=== PATIENT | male | born 1975 | race Caucasian/White ===

== ENCOUNTER 2023-12-01 15:31 | Inpatient (IN) ==
[2023-12-01 15:39] VITALS: TEMP 98.3
[2023-12-01 16:06] LABS: Hematocrit (blood only) 37.5 % (42.0-52.0); Hemoglobin 13.1 g/dl (14.0-18.0); Mean Corpuscular Hemoglobin 35.9 pg (25.0-34.0); Mean Corpuscular Hgb Conc 34.9 g/dL (32.0-36.0); Mean Corpuscular Volume 102.7 fL (80.0-100.0); Mean Platelet Volume 9.6 fL (9.4-12.4); Platelet Count 252 K/uL (130-400); RDW Coefficient of Variation 12.8 % (11.5-14.5); RDW Standard Deviation 48.4 fL (36.4-46.3); Red Blood Count 3.65 M/uL (4.70-6.10); White Blood Count 20.69 K/ul (4.8-10.8)
--- NOTE | 2023-12-01 16:17 | XRay Report ---
XR chest 1V not portable CLINICAL HISTORY: Sepsis. COMPARISON STUDY: Chest radiograph November 25, 2021. FINDINGS: Lung volumes are normal. Lungs are clear. There is no pneumothorax or pleural effusion. Car diac size is normal. Mediastinal contours are normal. There is no evidence for pulmonary edema. IMPRESSION: No acute cardiopulmonary findings. ACT 112: Negative or not required by law. Electronically signed by: Jone Soto M.D. 12/01/2023 4:15 PM
[2023-12-01 16:25] LABS: Albumin Globulin Ratio 1.3 (0.9-2); Albumin Level 3.9 gm/dl (3.4-5.0); BUN Creatinine Ratio 13.9 (10-20); Basophils # (auto) 0.07 K/uL (0.00-0.20); Basophils % (auto) 0.3 %; Bilirubin,Total 1.3 mg/dl (0.2-1.0); Calcium 8.7 mg/dl (8.6-10.3); Creatinine Clr Calc Pharmacy 115.5 ml/min; Eosinophils # (auto) 0.01 K/uL (0.00-0.50); Est GFR (African American) 121.4 ml/min; Est GFR (Non-African American) 104.7 ml/min; Immature Granulocytes # (auto) 0.34 K/uL (0.01-0.20); Immature Granulocytes % (auto) 1.6 %; Lymphocytes % (auto) 4.8 %; Magnesium 1.7 mg/dl (1.7-2.4); Monocytes # (auto) 0.67 K/uL (0.11-0.59); Monocytes % (auto) 3.2 %; Neutrophils % (auto) 90.1 %; Potassium 3.8 mmol/L (3.5-5.1); Total Protein 6.9 gm/dl (6.0-8.3)
[2023-12-01 16:31] LABS: Troponin I High Sensitivity 14.4 pg/ml (0-20)
[2023-12-01 16:43] LABS: Partial Thromboplastin Ratio 0.9; Partial Thromboplastin Time 24 Seconds (21-31)
--- NOTE | 2023-12-01 18:01 | Emergency Department Note ---
History of Present Illness General Chief complaint: Animal Bite Stated complaint: SPIDER BITE ON R KNEE Time Seen by Provider: 12/01/23 17:51 History of Present Illness Maximum Pain Intensity: 8 This is a 48-year-old male that presents to the emergency department via private vehicle with complaints of "right leg pain". Patient notes that he believes he was bitten by a spider to the right lower extremity. He points to the pretibial soft tissues just distal to the anterior right knee as the location of pain and edema that began around last evening that then progressed to his entire leg (distal to the knee). He notes that he believes a spider bit him over the past few days when he was in a house that had multiple spiders. The patient notes he has had a fever, Tmax 100.5 F. He also notes chills. He denies any nausea. The pain is increasing. He felt short of breath last evening but this has resolved. No chest pain. No history of blood clot. He has a history of anemia, hypertension. Surgical history significant for that of septoplasty and tonsillectomy. No known drug allergies except for [place]. Home Medications Medication Instructions Recorded Confirmed Type Kratom 1 tsp PO QID PRN Pain Symptoms 08/01/19 12/01/23 History ferrous sulfate 325 mg (65 mg 325 mg PO TID iron deficiency 09/23/19 12/01/23 Rx iron) tablet anemia #90 tabs ibuprofen 200 mg tablet 200 mg PO Q6H PRN Pain 11/19/19 12/01/23 History multivitamin 1 cap PO QAM 12/02/19 12/01/23 History pantoprazole 40 mg tablet,delayed 40 mg PO QAM PUD, GI bleed 12/02/19 12/01/23 History release (Protonix) magnesium oxide 400 mg (241.3 mg 400 mg PO DAILY #7 tabs 11/25/21 12/01/23 Rx magnesium) tablet (MagOx) bupropion HCl [Wellbutrin XL] 100 mg PO BID 12/27/21 12/01/23 History lisinopril 20 mg tablet 20 mg PO DAILY #90 tabs 12/27/21 12/01/23 Rx amlodipine 5 mg tablet 5 mg PO DAILY 12/01/23 12/01/23 History propranolol 20 mg tablet 20 mg PO DAILY 12/01/23 12/01/23 History Allergies Allergy/AdvReac Type Severity Reaction Status Date / Time bee venom protein (honey bee) Allergy Severe Anaphylaxis Verified 12/01/23 23:39 menthol [From [facility]] AdvReac Hives Verified 12/01/23 23:40 methyl salicylate AdvReac Hives Verified 12/01/23 23:40 [From [facility]] Past Med/Surg History Problem List (Updated 12/02/23 @ 01:05 by Jerome Amador PA-C) Leg pain, right (Acute) Leukocytosis (Acute) Fever Spider bite Cellulitis of right anterior lower leg (Acute) Anxiety Hyponatremia Encounter for pre-operative examination Iron deficiency anemia Smoker Reducible umbilical hernia Barretts esophagus Medical History Osteoarthritis History of kidney stones no surgery Umbilical hernia current Upper GI bleed july 2019 Anemia Anxiety Migraine hx Scoliosis Hypertension Surgical History History of umbilical hernia repair (12/03/19) Umbilical Hernia Open Repair - Pavan Colunga DO, FACS 12/03/19 History of colonoscopy 2019 History of esophagogastroduodenoscopy (EGD) History of tooth extraction History of wisdom tooth extraction Hx of tonsillectomy Hx of nasal septoplasty Family History Other Hypertension No family history of adverse response to anesthesia Social History Smoking Status: Unknown if ever smoked Tobacco Type: Cigarettes packs per day: 0.5; Cigarettes Per Day: 4-5 a day; Second Hand Exposure: Yes; Do You Dip or Chew Tobacco: No; Hx Alcohol Use: No Hx Substance Use: No Preferred Language: Bermudian Communication Ability: Effective Cell Operator Required: No Beliefs That Will Affect Care: None marital status: Current Living Situation: Spouse Current Living Situation Comment: Lives with girlfriend and daughter current occupational status: employed 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 How many Children do You have: 0 Feels Safe at Home: Yes Review of Systems A total of 10 systems reviewed and were otherwise negative Physical Exam Vital Signs Vital Signs - 24 hr 12/01/23 15:35 Temperature 36.8 C Temperature Source Oral Pulse Rate 110 H Respiratory Rate 16 Respiratory Effort / Characteristics Non-Labored Spontaneous Respiratory Depth Normal Blood Pressure 200/121 H Blood Pressure Mean 147 Pulse Oximetry 100 Oxygen Delivery Method Room Air Sepsis Recent Fever Within 48 Hours No Sepsis New/Unexplained Change in Mental Status No Sepsis Action Taken by Nursing No Action Required VITAL SIGNS - Vital signs and nursing notes were reviewed. Hypertensive, tachycardia. GENERAL - 48-year-old male appearing his stated age who is in no acute distress. Communicates well with provider and answers questions appropriately. SKIN - Without rashes. HEAD - NC/AT. EYES - Sclera anicteric. LUNGS - CTA CARDIAC - RRR ABDOMEN - Abdominal contour normal without pulsations or visible masses. BS normoactive all four quadrants. No tenderness, palpable masses, hepatosplenomegaly, or ascites noted. EXTREMITIES -right lower extremity is significantly edematous originating just proximal to the right knee and tracking distally. There is erythema to the pretibial soft tissues most pronounced just distal to the anterior right knee. The right dorsalis pedis pulse is within normal limits. The right lower extremity is at the present time well-perfused. +5/5 strength noted in UE/LE bilaterally. NEUROLOGIC - Cranial nerves grossly intact. PSYCH - A&O, and cooperates fully with examiner. Pt is very pleasant and interacts well with examiner. Course Administered Medications Lactated Ringer's (Lr) 1,000 mls @ 125 mls/hr IV .Q8H [facility] Stop: 12/02/23 12:14 Last Admin: 12/01/23 22:40 Dose: 125 mls/hr Documented By: AAW Piperacillin Sod/Tazobactam Sod (Zosyn) 4.5 gm in 100 mls @ 25 mls/hr IV Q8H [facility] Stop: 12/09/23 00:00 Last Admin: 12/02/23 00:42 Dose: 25 mls/hr Documented By: ASW Discontinued Medications Piperacillin Sod/Tazobactam Sod (Zosyn) 4.5 gm in 100 mls @ 200 mls/hr IV NOW ONE Stop: 12/01/23 18:31 Last Infusion: 12/01/23 19:45 Dose: Infused Documented By: Admin: 12/01/23 18:58 Dose: 200 mls/hr Documented By: Daptomycin 300 mg/ Syringe 6 mls @ 3 mls/min IV NOW STA; Protocol Stop: 12/01/23 19:13 Last Admin: 12/01/23 20:29 Dose: 3 mls/min Documented By: SULLY Lactated Ringer's (Lr) 1,000 mls @ 999 mls/hr IV .Q1H1M ONE Stop: 12/01/23 21:08 Last Infusion: 12/01/23 22:36 Dose: Infused Documented By: Admin: 12/01/23 20:45 Dose: 999 mls/hr Documented By: SULLY Ibuprofen (Ibuprofen 600 Mg Tab) 600 mg PO NOW STA Stop: 12/01/23 21:35 Last Admin: 12/01/23 21:43 Dose: 600 mg Documented By: DEVON Morphine Sulfate (Morphine Sulfate 4 Mg/Ml 1 Ml Carp\\Vial) 4 mg IV NOW STA Stop: 12/01/23 18:53 Last Admin: 12/01/23 19:08 Dose: 4 mg Documented By: DEVON Ondansetron HCl (Ondansetron Inj 2 Mg/Ml 2 Ml Vial) 4 mg IV NOW STA Stop: 12/01/23 19:03 Last Admin: 12/01/23 19:08 Dose: 4 mg Documented By: DEVON Medical Decision Making Laboratory Data 12/01/23 15:53 12/01/23 15:53 Lab Results 12/01/23 Range/Units 15:53 WBC 20.69 H (4.8-10.8) K/ul RBC 3.65 L (4.70-6.10) M/uL Hgb 13.1 L (14.0-18.0) g/dl Hct 37.5 L (42.0-52.0) % MCV 102.7 H (80.0-100.0) fL MCH 35.9 H (25.0-34.0) pg MCHC 34.9 (32.0-36.0) g/dL RDW Std Deviation 48.4 H (36.4-46.3) fL RDW Coeff of Gail 12.8 (11.5-14.5) % Plt Count 252 (130-400) K/uL MPV 9.6 (9.4-12.4) fL Immature Gran % (Auto) 1.6 % Neut % (Auto) 90.1 % Lymph % (Auto) 4.8 % [place] % (Auto) 3.2 % Eos % (Auto) 0.0 % Baso % (Auto) 0.3 % Neut # (Auto) 18.60 H (1.40-6.50) K/uL Lymph # (Auto) 1.00 L (1.20-3.40) K/uL [place] # (Auto) 0.67 H (0.11-0.59) K/uL Eos # (Auto) 0.01 (0.00-0.50) K/uL Baso # (Auto) 0.07 (0.00-0.20) K/uL Immature Gran # (Auto) 0.34 H (0.01-0.20) K/uL PT 11.0 (9.0-12.0) Seconds INR 1.0 (0.9-1.1) APTT 24 (21-31) Seconds PTT Ratio 0.9 Sodium 135 L (136-145) mmol/L Potassium 3.8 (3.5-5.1) mmol/L Chloride 96 L (98-107) mmol/L Carbon Dioxide 32 (21-32) mmol/L Anion Gap 7 (3-11) BUN 11 (6-23) mg/dl Creatinine 0.79 (0.6-1.4) mg/dl Est Cr Clr Drug Dosing 115.5 ml/min Est GFR ( Amer) 121.4 ml/min Est GFR (Non-Af Amer) 104.7 ml/min BUN/Creatinine Ratio 13.9 (10-20) Glucose 110 H (70-99(Fasting)) mg/dl Lactate 1.0 (0.4-2.0) mmol/L Calcium 8.7 (8.6-10.3) mg/dl Magnesium 1.7 (1.7-2.4) mg/dl Total Bilirubin 1.3 H (0.2-1.0) mg/dl AST 77 H (13-39) U/L ALT 84 H (7-52) U/L Alkaline Phosphatase 141 H (34-104) U/L Troponin I High Sens 14.4 (0-20) pg/ml Total Protein 6.9 (6.0-8.3) gm/dl Albumin 3.9 (3.4-5.0) gm/dl Globulin 3.0 (2.5-4.0) gm/dl Albumin/Globulin Ratio 1.3 (0.9-2) Procalcitonin 0.25 (0-0.5) ng/ml Imaging Data Radiologist's Impression: Chest X-Ray 12/01/23 15:40 XR chest 1V not portable CLINICAL HISTORY: Sepsis. COMPARISON STUDY: Chest radiograph November 25, 2021. FINDINGS: Lung volumes are normal. Lungs are clear. There is no pneumothorax or pleural effusion. Cardiac size is normal. Mediastinal contours are normal. There is no evidence for pulmonary edema. IMPRESSION: No acute cardiopulmonary findings. ACT 112: Negative or not required by law. Electronically signed by: Jone Soto M.D. 12/01/2023 4:15 PM Tibia/Fibula X-Ray 12/01/23 16:24 XR tibia fibula RT 2V CLINICAL HISTORY: Right lower extremity swelling. COMPARISON: None FINDINGS: No fracture within the right tibia or fibula are identified. There are no osseous lesions. No areas of bony erosion are identified. Right lower leg soft tissue swelling is present. IMPRESSION: 1. No osseous abnormality of the right tibia or fibula. 2. Right lower leg soft tissue swelling. ACT 112: Negative or not required by law. Electronically signed by: Jone Soto M.D. 12/01/2023 6:27 PM Venous Doppler Study 12/01/23 18:00 RIGHT LOWER EXTREMITY VENOUS DOPPLER CLINICAL HISTORY: Right leg pain. COMPARISON STUDY: No previous studies for comparison. TECHNIQUE: Sonography of the deep venous system of the right lower extremity was performed. Compression and augmentation were evaluated. FINDINGS: The right common femoral, superficial femoral and popliteal veins were compressible. Augmentation was normal. Flow was shown within the deep calf vessels. IMPRESSION: No evidence of deep venous thrombus within the right lower extremity. ACT 112: Negative or not required by law. Electronically signed by: Jone Soto M.D. 12/01/2023 6:46 PM MDM Narrative Patient was seen and evaluated as above in room D01. Review was performed of triage nursing notes and vital signs. A thorough history and physical examination was performed. Patient presents to us today for evaluation of right lower extremity edema most pronounced distal to the right knee. He believes that he was bitten by a spider. He notes that he was in a house and was exposed to several different types of spiders. He notes that this began at an area just distal to the right anterior knee but now has progressed to swelling, redness and now pain throughout much of the right lower extremity beginning at the knee and tracking distal. The patient on assessment does not have any findings to suggest current syndrome. Options of care were discussed with the patient. Patient was seen during a period of elevated vomiting acuity in the emergency department. He already had laboratory studies drawn and resulted. Laboratory studies reveal significant leukocytosis 20.69. Mild anemia noted with hemoglobin of 13.1. There is transaminitis noted as well as mild hyperbilirubinemia. Procalcitonin normal but detectable at 0.25. Lactate within normal range at 1.0. Broad-spectrum antibiotics initiated and the patient was administered IV Zosyn as well as IV daptomycin. I do suspect cellulitis at this time. No evidence of abscess. I did review the imaging. Per my interpretation there is no gas on the right lower extremity x-ray. No crepitus on examination. No necrosis noted on exam. Chest x-ray was obtained and was negative for acute process per my interpretation. Ultrasound revealed no DVT of the right lower extremity. I do believe that further evaluation and management in the inpatient setting is warranted. Case discussed with the hospitalist service. Patient was also administered IV morphine, IV zofran. Please refer to further documentation regarding his stay. Case discussed with the ED attending physician GCS: 15 In the evaluation and treatment of this patient the following differential diagnoses were entertained: Cellulitis, abscess, necrotizing fasciitis, spider bite, DVT, compartment syndrome among others Impression & Plan Cellulitis of right anterior lower leg, Leukocytosis, Leg pain, right Discharge Plan Visit Data Chief Complaint: Animal Bite Stated Complaint: SPIDER BITE ON R KNEE ED Provider: Eduardo Carney ED Midlevel Provider: Jerome Amador Discharge Problem: Cellulitis of right anterior lower leg, Leukocytosis, Leg pain, right Patient Disposition: Admitted As Inpatient Condition: Good Discharge Instructions Interventions: ED Discharge Assessment Last Done: 12/01/23 22:06
--- NOTE | 2023-12-01 18:28 | XRay Report ---
XR tibia fibula RT 2V CLINICAL HISTORY: Right lower extremity swelling. COMPARISON: None FINDINGS: No fracture within the right tibia or fibula are identified. There are no osseous lesions. No areas of bony erosion are identified. Right lower leg soft tissue swelling is present. IMPRESSION: 1. No osseous abnormality of the right tibia or fibula. 2. Right lower leg soft tissue swelling. ACT 112: Negative or not required by law. Electronically signed by: Jone Soto M.D. 12/01/2023 6:27 PM
--- NOTE | 2023-12-01 18:47 | Ultrasound Report ---
RIGHT LOWER EXTREMITY VENOUS DOPPLER CLINICAL HISTORY: Right leg pain. COMPARISON STUDY: No previous studies for comparison. TECHNIQUE: Sonography of the deep venous system of the right lower extremity was performed. Compress ion and augmentation were evaluated. FINDINGS: The right common femoral, superficial femoral and popliteal veins were compressible. Augme ntation was normal. Flow was shown within the deep calf vessels. IMPRESSION: No evidence of deep venous thrombus within the right lower extremity. ACT 112: Negative or not required by law. Electronically signed by: Jone Soto M.D. 12/01/2023 6:46 PM
[2023-12-01] MEDS: PIPERACILLIN/TAZOBACTAM 4.5 GM/100 ML BAG IV ONE (18:58)
[2023-12-01] MEDS: MoRPHine SULFATE 4 MG/ML 1 ML CARP\\VIAL IV STA (19:08)
[2023-12-01] MEDS: ONDANSETRON INJ 2 MG/ML 2 ML VIAL IV STA (19:08)
--- NOTE | 2023-12-01 20:02 | History & Physical Report ---
Date of Service December 01, 2023 Assessment & Plan (1) Cellulitis of right anterior lower leg: Plan: Significant cellulitic process after spider bite. No necrosis noted. Does seem to be progressing quickly. Started on Zosyn and dapto in the ED 11/30. Will continue. XR without gas, no crepitus on exam. Blood cultures pending. Does meet sepsis criteria - not severe. Given 1 L of LR and started on maintenance at 125 mL/hr x2 bags. Pain control with morphine. Antiemetics for nausea. abx - Zosyn/Dapto start 11/30 monitor for progression // signs of severe sepsis f/u cultures and narrow based on data if available pain control, hydration, antiemetics as needed toradol 15 Q6H PRN tylenol 1 g Q8H PRN morphine 2 mg and 4 mg IV PRN (2) Spider bite: Plan: No signs of necrosis/osteomyelitis/myositis at present. Low threshold to involve surg if worsening/progressing rapidly as patient may have been exposed to a brown recluse spider. Close monitoring. (3) Fever: Plan: Tylenol not scheduled as to avoid masking of fevers. Ordered PRN (4) Hypertension: Plan: Continue home meds once confirmed if BP allows (5) Anemia: Plan: Stable. Monitor while inpatient. Continue iron supplementation once med list confirmed (6) Anxiety: Plan: Continue home meds once med list confirmed Plan Code status: full DVT ppx: low risk, ambulation, if prolonged hospital stay and no indications for surgery would do chemoppx FENGI: heart healthy diet, LR bolus 1L, 2L maintenance ordered Dispo: Tele unit History of Present Illness Chief Complaint: spider bite Primary Care Provider: Rafita Lynn MD 48 y/o with a PMHx of iron deficiency anemia, anxiety, and HTN here for evaluation of right lower extremity pain and swelling. Patient with symptoms starting 11/29 after a spider bite at work. Patient has been in a client's home that has a significant spider burden. There are hernandez spiders, brown recluse, and unknown other spiders there. Unclear which type bit him. Patient with low grade fevers, generally feeling unwell, pain, swelling, and redness of the RLE. Has had some nausea. Has not been eating or drinking much. No CP or SOB. No abdominal pain. Hospitalist service consulted for admission. Allergies Allergy/AdvReac Type Severity Reaction Status Date / Time bee venom protein (honey bee) Allergy Severe Anaphylaxis Verified 12/01/23 23:39 menthol [From [facility]] AdvReac Hives Verified 12/01/23 23:40 methyl salicylate AdvReac Hives Verified 12/01/23 23:40 [From [facility]] Home Medications Medication Instructions Recorded Confirmed Type Kratom 1 tsp PO QID PRN Pain Symptoms 08/01/19 12/01/23 History ferrous sulfate 325 mg (65 mg 325 mg PO TID iron deficiency 09/23/19 12/01/23 Rx iron) tablet anemia #90 tabs ibuprofen 200 mg tablet 200 mg PO Q6H PRN Pain 11/19/19 12/01/23 History multivitamin 1 cap PO QAM 12/02/19 12/01/23 History pantoprazole 40 mg tablet,delayed 40 mg PO QAM PUD, GI bleed 12/02/19 12/01/23 History release (Protonix) magnesium oxide 400 mg (241.3 mg 400 mg PO DAILY #7 tabs 11/25/21 12/01/23 Rx magnesium) tablet (MagOx) bupropion HCl [Wellbutrin XL] 100 mg PO BID 12/27/21 12/01/23 History lisinopril 20 mg tablet 20 mg PO DAILY #90 tabs 12/27/21 12/01/23 Rx amlodipine 5 mg tablet 5 mg PO DAILY 12/01/23 12/01/23 History propranolol 20 mg tablet 20 mg PO DAILY 12/01/23 12/01/23 History Past Med/Surg History Problem List Fever Spider bite Cellulitis of right anterior lower leg Anxiety Hyponatremia Encounter for pre-operative examination Iron deficiency anemia Smoker Reducible umbilical hernia Barretts esophagus Medical History Osteoarthritis History of kidney stones no surgery Umbilical hernia current Upper GI bleed july 2019 Anemia Anxiety Migraine hx Scoliosis Hypertension Surgical History History of umbilical hernia repair (12/03/19) Umbilical Hernia Open Repair - Pavan Colunga DO, FACS 12/03/19 History of colonoscopy 2020 History of esophagogastroduodenoscopy (EGD) History of tooth extraction History of wisdom tooth extraction Hx of tonsillectomy Hx of nasal septoplasty Family History Other Hypertension No family history of adverse response to anesthesia Social History Smoking Status: Never smoker Tobacco Type: Cigarettes packs per day: 0.5; Cigarettes Per Day: 4-5 a day; Second Hand Exposure: Yes; Do You Dip or Chew Tobacco: No; Hx Alcohol Use: Yes Alcohol type: beer Hx Substance Use: No Preferred Language: Palestinian Communication Ability: Effective Motor Vehicle Technician Required: No Beliefs That Will Affect Care: None marital status: Current Living Situation: Significant Other Current Living Situation Comment: Lives with girlfriend and daughter current occupational status: employed 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 How many Children do You have: 0 Feels Safe at Home: Yes Review of Systems 2 Review of Systems: See HPI Physical Exam 2 Physical Exam: Gen: well appearing patient in NAD HEENT: AT NC MMM Resp: CTAB no wheezing no increased work of breathing CV: RRR no m/r/g clinically well perfused Abd: soft, non-tender, non-distended Neuro: alert and oriented, no focal deficits Psych: appropriate mood and affect Skin: erythematous and edematous right anterior lower extremity, some erythema travels medially up into the groin and laterally up the thigh, did laura with a skin pen around 20:00 11/30, well perfused, knee sparing, no crepitus Results & Data Results & Data Vital Signs (Past 12 Hours) Vital Signs Temp Pulse Resp BP Pulse Ox O2 Del Method 12/01/23 15:35 36.8 C 110 H 16 200/121 H 100 Room Air Laboratory Results 12/01/23 15:53 12/01/23 15:53 Diagnostic Findings Chest X-Ray 12/01/23 15:40 FINDINGS: Lung volumes are normal. Lungs are clear. There is no pneumothorax or pleural effusion. Cardiac size is normal. Mediastinal contours are normal. There is no evidence for pulmonary edema. IMPRESSION: No acute cardiopulmonary findings. Tibia/Fibula X-Ray 12/01/23 16:24 FINDINGS: No fracture within the right tibia or fibula are identified. There are no osseous lesions. No areas of bony erosion are identified. Right lower leg soft tissue swelling is present. IMPRESSION: 1. No osseous abnormality of the right tibia or fibula. 2. Right lower leg soft tissue swelling. Venous Doppler Study 12/01/23 18:00 FINDINGS: The right common femoral, superficial femoral and popliteal veins were compressible. Augmentation was normal. Flow was shown within the deep calf vessels. IMPRESSION: No evidence of deep venous thrombus within the right lower extremity. Supervising Physician Co-Signing Physician Notes Patient seen and examined, chart reviewed, case discussed with Dr. Rodriguez and I agree with the assessment and plan as above. In brief, patient is a 48yo male presenting with RLE cellulitis, possible spider bite. 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 He reports hernandez spiders, brown recluse spiders as well as other unknown spiders. He is uncertain which spider bit him. He has had brown recluse bites in the past. He has a warm, red swollen area on the anterior part of the RLE with surrounding warmth, redness, swelling and tenderness. He reports rapid progression of the redness and swelling. He did have some fevers and chills overnight Denies chest pain, SOB or other allergic symptoms In the ER he is afebrile, tachycardic and hypertensive HEENT - MMM, Neck supple Heart - +S1/S2, regular, no m/r/g Lungs - CTA anteriorly Abd - +BS, soft, NT/ND Ext - warmth, redness, swellin of RLE with redness extending above the knee. No crepitus, bullae. No pain in the thigh or femoral nodes. Labs and images reviewed WBC=20.69 with neutrophil predominance and bands Doppler without DVT. X-ray without fracture Assessment/Plan RLE cellulitis, possible spider bite -Tx with Daptomycin and Zosyn for now -Monitor for progression of infection -Continue LR -Pain control with Toradol, Morphine PRN -Resumed home BP medications to include Amlodipine, Lisinopril and Propranolol -Remainder as above Resident Activity Tracking Resident Involvement: Resident Care Provided Care Provided: Adult [facility] Medicine
[2023-12-01] MEDS: DAPTOmycin 300 MG in SYRINGE 0 ML IV STA (20:29)
[2023-12-01] MEDS: LACTATED RINGER'S 1,000 ML IV ONE (20:45)
[2023-12-01] MEDS: IBUPROFEN 600 MG TAB PO STA (21:43)
[2023-12-01] MEDS ORDERED: POLYETHYLENE (MIRALAX) 17 GM PACK PO PRN (22:06)
[2023-12-01] MEDS ORDERED: ONDANSETRON INJ 2 MG/ML 2 ML VIAL IV PRN (22:06)
[2023-12-01] MEDS: LACTATED RINGER'S 1,000 ML IV SCH (22:40)
[2023-12-01] MEDS ORDERED: ACETAMINOPHEN 500 MG TAB PO PRN (22:51)
[2023-12-01] MEDS ORDERED: KETOROLAC TROMETHAMINE 15 MG/ML VIAL IV PRN (22:51)
--- NOTE | 2023-12-02 00:27 | Billing Data ---
Date of Service December 01, 2023 Coding Level of Care Code 14763 INT INP/OBS CARE
[2023-12-02] MEDS: PIPERACILLIN/TAZOBACTAM 4.5 GM/100 ML BAG IV SCH (00:42)
[2023-12-02] MEDS: MoRPHine SULFATE 2 MG/ML CARP IV PRN (00:55)
[2023-12-02 04:18] LABS: Appearance Urine Clear (Clear); Bilirubin Urine Negative (Negative); Blood Urine Negative (Negative); Color Urine Yellow; Glucose Urine UA Negative (Negative); Ketones Urine Negative (Negative); Leukocyte Esterase Urine Negative (Negative); Nitrite Urine Negative (Negative); Protein Urine Negative (Negative); Specific Gravity Urine 1.005 (1.000-1.030); Urobilinogen Urine Negative (Negative)
[2023-12-02 05:14] LABS: Hematocrit (blood only) 30.5 % (42.0-52.0); Hemoglobin 10.4 g/dl (14.0-18.0); Mean Corpuscular Hemoglobin 35.7 pg (25.0-34.0); Mean Corpuscular Hgb Conc 34.1 g/dL (32.0-36.0); Mean Corpuscular Volume 104.8 fL (80.0-100.0); Platelet Count 163 K/uL (130-400); RDW Coefficient of Variation 12.8 % (11.5-14.5); RDW Standard Deviation 49.3 fL (36.4-46.3); Red Blood Count 2.91 M/uL (4.70-6.10); White Blood Count 13.33 K/ul (4.8-10.8)
[2023-12-02 05:53] LABS: Albumin Globulin Ratio 1.3 (0.9-2); BUN Creatinine Ratio 13.9 (10-20); Bilirubin,Total 0.7 mg/dl (0.2-1.0); Calcium 7.7 mg/dl (8.6-10.3); Creatinine Clr Calc Pharmacy 115.5 ml/min; Est GFR (African American) 121.4 ml/min; Est GFR (Non-African American) 104.7 ml/min; Globulin 2.3 gm/dl (2.5-4.0); Potassium 3.4 mmol/L (3.5-5.1); Total Protein 5.3 gm/dl (6.0-8.3)
[2023-12-02] MEDS: amLODIPine BESYLATE 5 MG TAB PO SCH (08:53)
[2023-12-02] MEDS: PANTOprazole 40 MG TAB PO SCH (08:54)
[2023-12-02] MEDS: lisinopril 20 MG TAB PO SCH (08:54)
[2023-12-02] MEDS: buPROPion SR 100 MG TABCR PO SCH (08:54)
[2023-12-02] MEDS: PROPRANOLOL HCL 20 MG TAB PO SCH (08:55)
[2023-12-02] MEDS: MoRPHine SULFATE 4 MG/ML 1 ML CARP\\VIAL IV PRN (13:19)
--- NOTE | 2023-12-02 19:20 | Discharge Summary ---
Discharge Summary Date of Service December 02, 2023 Principal Dx & Hospital Course #1 = Principal Diagnosis (1) Cellulitis of right anterior lower leg: Patient presented with significant cellulitic process after suspected spider bite. No necrosis noted. Did seem to be progressing quickly. - Started on Zosyn and dapto in the ED 11/30. Will continue. - X-Ray of tibia/fibula without gas, no crepitus on exam. Blood cultures pending. - Venous Doppler negative for DVT within right lower extremity. - Does meet sepsis criteria - not severe. Given IVF x3 bags total. > abx - Zosyn/Dapto start 11/30 > monitor for progression // signs of severe sepsis > f/u cultures and narrow based on data if available > pain control, hydration, antiemetics as needed toradol 15 Q6H PRN tylenol 1 g Q8H PRN morphine 2 mg and 4 mg IV PRN Patient chose to leave against medical advice evening of 12/01. He was counselled extensively about the risks associated with leaving against medical advice, including: Worsening of your problems, needing to be readmitted to the hospital again for the same condition, and that your condition could become life-threatening. Risks associated with significant cellulitis include sepsis, tissue damage, bone infection, bloodstream infection which can be severe enough to result in . - Augmentin BID x 7 days was sent to his pharmacy. - Stressed the importance of close PCP follow-up. - Advised patient to return to the hospital if he has any concerns. (2) Spider bite: No signs of necrosis/osteomyelitis/myositis at present. Close monitoring. (3) Fever: Tylenol not scheduled as to avoid masking of fevers. Ordered PRN (4) Hypertension: Continue home meds (5) Anemia: Stable. Monitor while inpatient. Continue iron supplementation. (6) Anxiety: Continue home meds Plan Patient left AMA in the evening of 12/02/2023. Extensive counseling was provided to the patient on the risks of leaving AMA. Course of Augmentin x 7 days was sent to his pharmacy. CODE STATUS: Full code Notes For Next Care Provider Patient chose to leave against medical advice evening of 12/01. He was counselled extensively about the risks associated with leaving against medical advice. Stressed the importance of close PCP follow-up. Medication Changes From Visit Augmentin BID x 7 days was sent to his pharmacy. Admission HPI Per Admitting Provider 48 y/o with a PMHx of iron deficiency anemia, anxiety, and HTN here for evaluation of right lower extremity pain and swelling. Patient with symptoms starting 11/29 after a spider bite at work. Patient has been in a client's home that has a significant spider burden. There are hernandez spiders, brown recluse, and unknown other spiders there. Unclear which type bit him. Patient with low grade fevers, generally feeling unwell, pain, swelling, and redness of the RLE. Has had some nausea. Has not been eating or drinking much. No CP or SOB. No abdominal pain. Hospitalist service consulted for admission. Admission Exam Per Admitting Provider Gen: well appearing patient in NAD HEENT: AT NC MMM Resp: CTAB no wheezing no increased work of breathing CV: RRR no m/r/g clinically well perfused Abd: soft, non-tender, non-distended Neuro: alert and oriented, no focal deficits Psych: appropriate mood and affect Skin: erythematous and edematous right anterior lower extremity, some erythema travels medially up into the groin and laterally up the thigh, did laura with a skin pen around 20:00 11/30, well perfused, knee sparing, no crepitus Discharge Exam General: No acute distress, nondiaphoretic, well-developed, well-nourished. Skin: Erythematous and edematous right anterior lower extremity. Erythema did improve compared to the pen marking on admission. No crepitus, no weeping, no purulent drainage. Cardiac: Regular rate and rhythm without murmurs gallops or rubs. Pulm: Clear to auscultation bilaterally without wheezes, rales or rhonchi. No respiratory distress. 98% on room air. Abdominal: Soft, nontender, nondistended. Bowel sounds present. Neuro: A&O x3. No focal neurological deficits. Discharge Plan Discharge Items Patient Disposition: Against Medical Advice Reason For Visit: CELLULITIS Condition on Discharge: Fair Activity: As commented below Activity Comment: Activity as tolerated Non-emergency contact: Primary Care Provider Follow-up/Referrals: Rafita Lynn MD [Primary Care Provider] - Addtl Recreation Professor Provider Instructions: You have chosen to leave against medical advice. You have been counselled extensively by myself about the risks associated with leaving against medical advice, including: Worsening of your problems, needing to be readmitted to the hospital again for the same condition, and that your condition could become life-threatening. Risks associated with significant cellulitis include sepsis, tissue damage, bone infection, bloodstream infection which can be severe enough to result in . You were treated with IV antibiotics while in the hospital. Your wound cultures and blood cultures are still pending. I have sent a prescription to your pharmacy for an oral antibiotic. It is important to take this antibiotic completely, even if you feel better. Not completing the course could result in the infection returning and can make future infections harder to treat. It is very important that you have an urgent follow-up with your primary care provider. Return to the hospital if you have any concerns or experience any of the symptoms listed above. Pending Studies at Discharge: Yes Stand-Alone Forms: My [facility] Smoking Cessation Medications and DC Order Prescriptions: New amoxicillin-pot clavulanate 875-125 mg tablet 1 tab PO BID Qty: 14 0RF Continued ferrous sulfate 325 mg (65 mg iron) tablet 325 mg PO TID Qty: 90 3RF ibuprofen 200 mg tablet 200 mg PO Q6H PRN (Reason: Pain) bupropion HCl [Wellbutrin XL] 100 mg PO BID lisinopril 20 mg tablet 20 mg PO DAILY Qty: 90 3RF Kratom 1 tsp PO QID PRN (Reason: Pain Symptoms) Patient Comments: herbal medicine for pain Rx Instructions: Mixed with water multivitamin Capsule 1 cap PO QAM pantoprazole [Protonix] 40 mg tablet,delayed release (DR/EC) 40 mg PO QAM magnesium oxide [MagOx] 400 mg (241.3 mg magnesium) tablet 400 mg PO DAILY Qty: 7 0RF amlodipine 5 mg tablet 5 mg PO DAILY propranolol 20 mg tablet 20 mg PO DAILY Admission Data Admit Date/Time: 12/01/23 19:59 Attending Provider: Mac Chew Admit Provider: Joya Rodriguez Primary Care Provider: Rafita Lynn Other Providers: Sada Joshi Hospital Stay Data Consultations 12/01/23 19:10 ED Decision to Admit Stat Diagnostic Imagining Performed Chest X-Ray 12/01/23 15:40 XR chest 1V not portable CLINICAL HISTORY: Sepsis. COMPARISON STUDY: Chest radiograph November 25, 2021. FINDINGS: Lung volumes are normal. Lungs are clear. There is no pneumothorax or pleural effusion. Cardiac size is normal. Mediastinal contours are normal. There is no evidence for pulmonary edema. IMPRESSION: No acute cardiopulmonary findings. ACT 112: Negative or not required by law. Electronically signed by: Jone Soto M.D. 12/01/2023 4:15 PM Tibia/Fibula X-Ray 12/01/23 16:24 XR tibia fibula RT 2V CLINICAL HISTORY: Right lower extremity swelling. COMPARISON: None FINDINGS: No fracture within the right tibia or fibula are identified. There are no osseous lesions. No areas of bony erosion are identified. Right lower leg soft tissue swelling is present. IMPRESSION: 1. No osseous abnormality of the right tibia or fibula. 2. Right lower leg soft tissue swelling. ACT 112: Negative or not required by law. Electronically signed by: Jone Soto M.D. 12/01/2023 6:27 PM Venous Doppler Study 12/01/23 18:00 RIGHT LOWER EXTREMITY VENOUS DOPPLER CLINICAL HISTORY: Right leg pain. COMPARISON STUDY: No previous studies for comparison. TECHNIQUE: Sonography of the deep venous system of the right lower extremity was performed. Compression and augmentation were evaluated. FINDINGS: The right common femoral, superficial femoral and popliteal veins were compressible. Augmentation was normal. Flow was shown within the deep calf vessels. IMPRESSION: No evidence of deep venous thrombus within the right lower extremity. ACT 112: Negative or not required by law. Electronically signed by: Jone Soto M.D. 12/01/2023 6:46 PM Pending Results Patient Have Any Pending Studies at Discharge: Yes Total Time Total Time Spent Total Time Spent (In Minutes): Greater than 30 minutes spent completing this discharge process including direct patient care, medication reconciliation, documentation, review of labs and images, and coordination of care. Coding Level of Care Code 22033 INP/OBS DISCH >30 MIN Diagnoses Cellulitis of right anterior lower leg L03.115 Spider bite T63.301A Fever R50.9 Hypertension I10 Anemia D64.9 Anxiety F41.9
[2023-12-02] MEDS: DAPTOmycin 300 MG in SYRINGE 0 ML IV SCH (20:09)
[2023-12-02 20:24] VITALS: BP 130/82; PULSE 78; RESP 20; O2SAT 98
== END 2023-12-02 20:24 | disposition left against medical advice (07) | DRG 603 ==
LOC: ED 15:31 → SUATTDRO 19:59 → EDINP 19:59

== ENCOUNTER 2023-12-03 11:04 | Inpatient (IN) ==
--- NOTE | 2023-12-03 11:53 | Emergency Department Note ---
Impression & Plan Cellulitis of right lower extremity ED Provider Note Provider: Walter Glover MD DATE OF SERVICE: 12/03/2023 CHIEF COMPLAINT: Worsening right leg infection for spider bite HISTORY OF PRESENT ILLNESS: Patient is a 48-year-old gentleman history of anxiety, Chen's esophagus, and smoking presenting here today reporting that he was hospitalized here over the weekend for spider bite of his right leg and is worsening. Left AMA last night. Patient states that has not picked up his outpatient antibiotic yet. Fever over 101 this morning. Did take ibuprofen earlier this morning. Continued pain in the right leg. The previously outlined extent of the redness is noted and states is a bit less than that but has a little bit of slight blistering and redness behind the right leg. Distant history of some skin infections in the past. Does request some pain medication and states her may be just a touch of numbness in his foot. No falls. PAST MEDICAL HISTORY: As noted above MEDICATIONS: Reviewed no medications SOCIAL HISTORY: Smoker PHYSICAL EXAM: GENERAL: alert and oriented in no acute distress on stretcher Head: normocephalic and atraumatic EYES: No injection, discharge or icterus. EOMI. NECK: Trachea midline. Supple. ENT: Mucous membranes pink and moist. LUNGS: Airway patent. No retractions or tachypnea HEART: Regular rate and rhythm. No chest wall tenderness SKIN: Acyanotic, warm, dry, without rashes EXTREMITIES: Without swelling, tenderness or deformity except: Significant 3+ edema of the right lower extremity without weeping or obvious discharge. There is a small less than centimeter clear serous bulla present behind the right knee. Erythema from the midfoot extending through the hoyos to approximately the knee line. Extends a little more proximally on the posterior aspect into the posterior fossa. Able to range the knee and foot without severe pain. Gross sensation intact in the right foot with capillary refill present on the toes. No other redness or swelling in the other extremities. NEUROLOGICAL: No focal deficits. No aphasia. No facial droop or slurred speech. Normal strength and tone in the extremities. Sensation to gross touch normal. EK bpm normal sinus rhythm. No PVC or PAC. No acute ST segment elevation or depression with a QTc of 477. Slight anterior V1 V2 T wave inversion. Patient's laboratory studies and imaging reviewed. Differential includes Cellulitis, abscess, MRSA infection, DVT, necrotizing fasciitis, dermatitis, drug eruption, allergic reaction, as well as other pathologies. IMPRESSION/MEDICAL DECISION MAKING: Reviewed recent admission and ER evaluation including Doppler study negative for DVT. Does not appear to have any neurovascular compromise at this time. Do not believe this is fluid overload. Doubt these represent compartment syndrome. Do not see any obvious fluctuant mobile mass or collection based on exam. Does have a little bit of blistering behind the knee but appears serous in nature. Erythematous area is improved from the total extent. Borderline fever here and slightly tachycardic. Given some fluid, Tylenol, small mount morphine, and Zosyn. Will continue with plan for daptomycin based on dosing timing from last dose. Do not believe an additional imaging at this time. Again do not believe there is vascular compromise or that this represents compartment syndrome at this time. Blood work obtained today with continued improved white blood cell count. Procalcitonin not significantly elevated. Discussed with the hospitalist for admission as the patient is agreeable with this. Given the significant extent of the swelling and redness believe this is indicated. Blood culture sent today. Previous blood culture from 2 days ago appears negative at this time. DIAGNOSIS: Right lower extremity cellulitis DISPOSITION: Hospitalist will evaluate Patient was agreeable with this plan. Past Med/Surg History Problem List (Updated 12/03/23 @ 13:44 by Walter Glover M.D.) Cellulitis of right lower extremity (Acute) Sepsis Hypertension Leg pain, right (Acute) Leukocytosis (Acute) Fever Spider bite Cellulitis of right anterior lower leg (Acute) Anxiety Hyponatremia Encounter for pre-operative examination Iron deficiency anemia Smoker Reducible umbilical hernia Barretts esophagus Medical History Osteoarthritis History of kidney stones no surgery Umbilical hernia current Upper GI bleed july 2019 Anemia Anxiety Migraine hx Scoliosis Hypertension Surgical History History of umbilical hernia repair (12/03/19) Umbilical Hernia Open Repair - Pavan Colunga DO, FACS 12/03/19 History of colonoscopy 2019 History of esophagogastroduodenoscopy (EGD) History of tooth extraction History of wisdom tooth extraction Hx of tonsillectomy Hx of nasal septoplasty Family History Other Hypertension No family history of adverse response to anesthesia Social History Smoking Status: Never smoker Tobacco Type: Cigarettes packs per day: 0.5; Cigarettes Per Day: 4-5 a day; Second Hand Exposure: Yes; Do You Dip or Chew Tobacco: No; Hx Alcohol Use: No Hx Substance Use: No Preferred Language: Spanish Communication Ability: Effective Stone Grader Required: No Beliefs That Will Affect Care: None marital status: Current Living Situation: Spouse Current Living Situation Comment: Lives with girlfriend and daughter current occupational status: employed current occupation: [employer] How many Children do You have: 0 Feels Safe at Home: Yes Assistive Devices: None Allergies Allergies Allergy/AdvReac Type Severity Reaction Status Date / Time bee venom protein (honey bee) Allergy Severe Anaphylaxis Verified 12/01/23 23:39 menthol [From [facility]] AdvReac Hives Verified 12/01/23 23:40 methyl salicylate AdvReac Hives Verified 12/01/23 23:40 [From [facility]] Home Meds Home Medications Medication Instructions Recorded Confirmed Kratom 1 tsp PO QID PRN Pain Symptoms 08/01/19 12/03/23 ibuprofen 200 mg tablet 200 mg PO Q6H PRN Pain 11/19/19 12/03/23 multivitamin 1 cap PO QAM 12/02/19 12/03/23 pantoprazole 40 mg tablet,delayed 40 mg PO QAM PUD, GI bleed 12/02/19 12/03/23 release (Protonix) bupropion HCl [Wellbutrin XL] 100 mg PO BID 12/27/21 12/03/23 amlodipine 5 mg tablet 5 mg PO DAILY 12/01/23 12/03/23 propranolol 20 mg tablet 20 mg PO DAILY 12/01/23 12/03/23 Previous Rx's Medication Instructions Recorded ferrous sulfate 325 mg (65 mg 325 mg PO TID iron deficiency 09/23/19 iron) tablet anemia #90 tabs magnesium oxide 400 mg (241.3 mg 400 mg PO DAILY #7 tabs 11/25/21 magnesium) tablet (MagOx) lisinopril 20 mg tablet 20 mg PO DAILY #90 tabs 12/27/21 amoxicillin 875 mg-potassium 1 tab PO BID #14 tabs 12/02/23 clavulanate 125 mg tablet Results & Data (ED) Vital Signs Vital Signs - 24 hr 12/03/23 11:18 12/03/23 11:58 12/03/23 12:01 Temperature 37.8 C H Temperature Source Oral Pulse Rate 101 H 96 H Pulse Rate [Left Finger] 99 H Pulse Rhythm Regular Regular Pulse Rhythm [Left Finger] Regular Pulse Strength Normal Pulse Strength [Left Finger] Normal Respiratory Rate 20 20 20 Respiratory Effort / Characteristics Non-Labored Spontaneous Non-Labored Respiratory Depth Normal Normal Respiratory Pattern Regular Blood Pressure 146/94 H Blood Pressure [Right Arm] 158/99 H Blood Pressure Mean 111 Blood Pressure Mean [Right Arm] 118 Blood Pressure Position Sitting Pulse Oximetry 94 99 99 Oxygen Delivery Method Room Air Room Air Room Air Sepsis Recent Fever Within 48 Hours No Sepsis New/Unexplained Change in Mental Status N/A Sepsis Action Taken by Nursing No Action Required 12/03/23 12:28 Temperature Temperature Source Pulse Rate 94 H Pulse Rate [Left Finger] Pulse Rhythm Pulse Rhythm [Left Finger] Pulse Strength Pulse Strength [Left Finger] Respiratory Rate Respiratory Effort / Characteristics Respiratory Depth Respiratory Pattern Blood Pressure Blood Pressure [Right Arm] Blood Pressure Mean Blood Pressure Mean [Right Arm] Blood Pressure Position Pulse Oximetry Oxygen Delivery Method Sepsis Recent Fever Within 48 Hours Sepsis New/Unexplained Change in Mental Status Sepsis Action Taken by Nursing Laboratory Data 12/03/23 11:38 12/03/23 11:38 Lab Results 12/03/23 12/03/23 Range/Units 11:38 11:52 WBC 12.56 H (4.8-10.8) K/ul RBC 3.29 L (4.70-6.10) M/uL Hgb 11.6 L (14.0-18.0) g/dl Hct 34.1 L (42.0-52.0) % MCV 103.6 H (80.0-100.0) fL MCH 35.3 H (25.0-34.0) pg MCHC 34.0 (32.0-36.0) g/dL RDW Std Deviation 48.2 H (36.4-46.3) fL RDW Coeff of Gail 12.7 (11.5-14.5) % Plt Count 191 (130-400) K/uL MPV 10.4 (9.4-12.4) fL Immature Gran % (Auto) 2.9 % Neut % (Auto) 88.9 % Lymph % (Auto) 3.7 % Talbot % (Auto) 3.8 % Eos % (Auto) 0.5 % Baso % (Auto) 0.2 % Neut # (Auto) 11.16 H (1.40-6.50) K/uL Lymph # (Auto) 0.47 L (1.20-3.40) K/uL Talbot # (Auto) 0.48 (0.11-0.59) K/uL Eos # (Auto) 0.06 (0.00-0.50) K/uL Baso # (Auto) 0.03 (0.00-0.20) K/uL Immature Gran # (Auto) 0.36 H (0.01-0.20) K/uL Platelet Estimate Normal (Normal) ESR 41 H (0-20) mm/hr PT 10.4 (9.0-12.0) Seconds INR 1.0 (0.9-1.1) APTT 23 (21-31) Seconds PTT Ratio 0.9 Sodium 133 L (136-145) mmol/L Potassium 3.3 L (3.5-5.1) mmol/L Chloride 102 (98-107) mmol/L Carbon Dioxide 24 (21-32) mmol/L Anion Gap 7 (3-11) BUN 10 (6-23) mg/dl Creatinine 0.80 (0.6-1.4) mg/dl Est Cr Clr Drug Dosing 114.1 ml/min Est GFR ( Amer) 120.7 ml/min Est GFR (Non-Af Amer) 104.2 ml/min BUN/Creatinine Ratio 12.5 (10-20) Glucose 121 H (70-99(Fasting)) mg/dl Lactate 1.1 (0.4-2.0) mmol/L Calcium 8.3 L (8.6-10.3) mg/dl Magnesium 1.9 (1.7-2.4) mg/dl Total Bilirubin 0.7 (0.2-1.0) mg/dl AST 38 (13-39) U/L ALT 44 (7-52) U/L Alkaline Phosphatase 136 H (34-104) U/L Troponin I High Sens 9.9 D (0-20) pg/ml C-Reactive Protein 26.49 H (0-0.5) mg/dl Total Protein 6.2 (6.0-8.3) gm/dl Albumin 3.2 L (3.4-5.0) gm/dl Globulin 3.0 (2.5-4.0) gm/dl Albumin/Globulin Ratio 1.1 (0.9-2) Procalcitonin 0.27 (0-0.5) ng/ml Administered Medications Parenteral Electrolytes (Plasma-Lyte A Ph 7.4) 1,500 mls @ 999 mls/hr IV .Q1H31M ONE Stop: 12/03/23 14:32 Last Admin: 12/03/23 13:43 Dose: 999 mls/hr Documented By: ROSE Discontinued Medications Sodium Chloride (Nss) 1,000 mls @ 999 mls/hr IV .Q1H1M ONE Stop: 12/03/23 12:50 Last Infusion: 12/03/23 13:18 Dose: Infused Documented By: Admin: 12/03/23 12:13 Dose: 999 mls/hr Documented By: [facility] Piperacillin Sod/Tazobactam Sod (Zosyn) 4.5 gm in 100 mls @ 200 mls/hr IV NOW ONE Stop: 12/03/23 12:19 Last Infusion: 12/03/23 12:42 Dose: Infused Documented By: Admin: 12/03/23 12:12 Dose: 200 mls/hr Documented By: [facility] Acetaminophen (Ofirmev) 1,000 mg in 100 mls @ 400 mls/hr IV NOW STA Stop: 12/03/23 12:19 Last Infusion: 12/03/23 13:11 Dose: Infused Documented By: Admin: 12/03/23 12:54 Dose: 400 mls/hr Documented By: [facility] Morphine Sulfate (Morphine Sulfate 2 Mg/Ml Carp) 2 mg IV NOW STA Stop: 12/03/23 12:06 Last Admin: 12/03/23 12:25 Dose: 2 mg Documented By: [facility] Imaging Data Radiologist's Impression: Chest X-Ray 12/03/23 11:22 XR chest 1V portable CLINICAL HISTORY: Sepsis COMPARISON STUDY: Chest radiograph December 01, 2023. FINDINGS: Lung volumes are normal. There is no consolidation. Linear left basilar density represents atelectasis. There is no pneumothorax or pleural effusion. Cardiac size is normal. Mediastinal contours are normal. There is no evidence for pulmonary edema. IMPRESSION: No acute cardiopulmonary findings. ACT 112: Negative or not required by law. Electronically signed by: Jone Soto M.D. 12/03/2023 12:13 PM Discharge Plan Visit Data Chief Complaint: Animal Bite Stated Complaint: SPIDER BITE IS WORSE ED Provider: Walter Glover Discharge Problem: Cellulitis of right lower extremity Patient Disposition: Being Evaluated by Hospitalist Forms Stand Alone Forms: My [facility] Prescriptions Prescriptions: No Action ferrous sulfate 325 mg (65 mg iron) tablet 325 mg PO TID Qty: 90 3RF ibuprofen 200 mg tablet 200 mg PO Q6H PRN (Reason: Pain) bupropion HCl [Wellbutrin XL] 100 mg PO BID lisinopril 20 mg tablet 20 mg PO DAILY Qty: 90 3RF Kratom 1 tsp PO QID PRN (Reason: Pain Symptoms) Patient Comments: herbal medicine for pain Rx Instructions: Mixed with water multivitamin Capsule 1 cap PO QAM pantoprazole [Protonix] 40 mg tablet,delayed release (DR/EC) 40 mg PO QAM magnesium oxide [MagOx] 400 mg (241.3 mg magnesium) tablet 400 mg PO DAILY Qty: 7 0RF amlodipine 5 mg tablet 5 mg PO DAILY propranolol 20 mg tablet 20 mg PO DAILY amoxicillin-pot clavulanate 875-125 mg tablet 1 tab PO BID Qty: 14 0RF Referrals Referrals: Rafita Lynn MD [Primary Care Provider] -
[2023-12-03] MEDS: PIPERACILLIN/TAZOBACTAM 4.5 GM/100 ML BAG IV ONE (12:12)
[2023-12-03] MEDS: SODIUM CHLORIDE 0.9% 1,000 ML IV ONE (12:13)
[2023-12-03 12:14] LABS: Partial Thromboplastin Ratio 0.9; Partial Thromboplastin Time 23 Seconds (21-31); Prothrombin Time 10.4 Seconds (9.0-12.0)
--- NOTE | 2023-12-03 12:15 | History & Physical Report ---
Date of Service December 03, 2023 Assessment & Plan (1) Cellulitis of right anterior lower leg: Plan: Patient initially presented on 11/30 for lower extremity cellulitis secondary to spider bite The left AMA on 12/01, but then returned on 12/02 due to fever of 103F Leukocytosis at 12.56 with a neutrophil predominance; febrile at 37.8 C on arrival CRP and ESR ordered, pending Procalcitonin and lactate are WNL on arrival Venous Doppler on 11/30 showed no evidence of DVT Zosyn 4.5 g IV x 1 in the ED No purulent drainage or h/o MRSA infections Continue with Rocephin 2000 mg IV q24h Acetaminophen as needed for mild pain/fever Oxycodone as needed for breakthrough pain Neurochecks every 4 hours on the right lower extremity to evaluate for compartment syndrome A.m. CBC, BMP, Mag, CRP (2) Sepsis: Plan: Skin/soft tissue source; tachycardic and febrile on arrival Lactate and procalcitonin WNL Blood cultures redrawn Prior blood cultures on 11/30 without growth to date IVF bolus with NSS 1000 mL IV + Plasma-Lyte 1500mL to meet 30 cc/kg for ideal body weight Abx (as above) (3) Spider bite: Plan: Tib/fib x-ray on 11/30 did not note any osseous abnormalities No necrosis noted on clinical exam (4) Hypertension: Plan: Continue amlodipine, lisinopril, propranolol (5) Fever: (6) Anxiety: Plan Disposition: Admit to med telemetry Full code Heart healthy diet VTE PPx: Lovenox 40mg SQ q24h History of Present Illness Chief Complaint: Animal bite Primary Care Provider: Rafita Lynn MD Mario is a 48-year-old male with PMH of Chen's esophagus, anxiety, and iron deficiency anemia. He returned to the hospital on 12/02 for fever/RLE cellulitis secondary to spider bite. Patient was originally bitten on Friday night around 5 PM, then developed redness and swelling in his right lower extremity around 8 PM. He is unsure if it was a brown recluse or a hernandez spider. He came to the hospital on Thursday 11/30 and received IV antibiotics for 2 days before leaving [place] after receiving IV antibiotics on the evening of 12/01. He then reports he developed a fever of 103 F at home despite taking Tylenol x 2. He returned this morning, and does endorse worsening redness and swelling since he left. He rates the pain in his right lower extremity a 5/10 while sitting, and a 10/10 when standing and bearing weight on it. Pain is exacerbated by standing. He describes as a sharp, stabbing pain located between his foot and his knee. He did take 1 Advil prior to coming to the hospital. Took regular morning medications today; no recent change in medications. No prior history of cellulitis. No history of hardware in his leg or knee replacements. He did not warp picker or take the outpatient antibiotics that were prescribed after he left AMA. No history of DVTs or PEs. No recent injuries to the right lower extremity. No history of MRSA infections. He does note that he now has a blister on his right popliteal fossa (new for him since discharge). No weeping or purulent drainage. He is a current everyday cigarette smoker; 1 cigarette/day. He also endorses alcohol use; 23 beers per day with the last drink being last night after leaving the hospital. His daily alcohol use has been ongoing for the past 2-3 years. He denies history of alcohol withdrawal or seizures. Patient is hypertensive 158/99 and febrile at 37.8 C at time admission. ED course: Zosyn 4.5 g IV Acetaminophen 1000 mg IV Morphine sulfate 2 mg IV NSS 1000 mL IV ROS: Patient endorses fever of 103, chills, night-sweats, pain/swelling/erythema in the RLE, and intermittent numbness/tingling in the right ankle. Patient denies dizziness, lightheadedness, PONCE, changes in vision, chest pain, pleuritic CP, SOB, cough, abdominal pain, N/V/D, or change in urinary/bowel habits. Allergies Allergy/AdvReac Type Severity Reaction Status Date / Time bee venom protein (honey bee) Allergy Severe Anaphylaxis Verified 12/01/23 23:39 menthol [From [facility]] AdvReac Hives Verified 12/01/23 23:40 methyl salicylate AdvReac Hives Verified 12/01/23 23:40 [From [facility]] Home Medications Medication Instructions Recorded Confirmed Type Kratom 1 tsp PO QID PRN Pain Symptoms 08/01/19 12/03/23 History ferrous sulfate 325 mg (65 mg 325 mg PO TID iron deficiency 09/23/19 12/03/23 Rx iron) tablet anemia #90 tabs ibuprofen 200 mg tablet 200 mg PO Q6H PRN Pain 11/19/19 12/03/23 History multivitamin 1 cap PO QAM 12/02/19 12/03/23 History pantoprazole 40 mg tablet,delayed 40 mg PO QAM PUD, GI bleed 12/02/19 12/03/23 History release (Protonix) magnesium oxide 400 mg (241.3 mg 400 mg PO DAILY #7 tabs 11/25/21 12/03/23 Rx magnesium) tablet (MagOx) bupropion HCl [Wellbutrin XL] 100 mg PO BID 12/27/21 12/03/23 History lisinopril 20 mg tablet 20 mg PO DAILY #90 tabs 12/27/21 12/03/23 Rx amlodipine 5 mg tablet 5 mg PO DAILY 12/01/23 12/03/23 History propranolol 20 mg tablet 20 mg PO DAILY 12/01/23 12/03/23 History amoxicillin 875 mg-potassium 1 tab PO BID #14 tabs 12/02/23 12/03/23 Rx clavulanate 125 mg tablet Past Med/Surg History Problem List (Updated 12/03/23 @ 13:04 by Virgil Fischer PA-C) Sepsis Hypertension Leg pain, right (Acute) Leukocytosis (Acute) Fever Spider bite Cellulitis of right anterior lower leg (Acute) Anxiety Hyponatremia Encounter for pre-operative examination Iron deficiency anemia Smoker Reducible umbilical hernia Barretts esophagus Medical History Osteoarthritis History of kidney stones no surgery Umbilical hernia current Upper GI bleed july 2019 Anemia Anxiety Migraine hx Scoliosis Hypertension Surgical History History of umbilical hernia repair (12/03/19) Umbilical Hernia Open Repair - Pavan Colunga DO, FACS 12/03/19 History of colonoscopy 2019 History of esophagogastroduodenoscopy (EGD) History of tooth extraction History of wisdom tooth extraction Hx of tonsillectomy Hx of nasal septoplasty Family History Other Hypertension No family history of adverse response to anesthesia Social History Smoking Status: Never smoker Tobacco Type: Cigarettes packs per day: 0.5; Cigarettes Per Day: 4-5 a day; Second Hand Exposure: Yes; Do You Dip or Chew Tobacco: No; Hx Alcohol Use: No Hx Substance Use: No Preferred Language: French Communication Ability: Effective Raw Silk Grader Required: No Beliefs That Will Affect Care: None marital status: Current Living Situation: Spouse Current Living Situation Comment: Lives with girlfriend and daughter current occupational status: employed 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 How many Children do You have: 0 Feels Safe at Home: Yes Assistive Devices: None Review of Systems 2 Review of Systems: See HPI above Physical Exam 2 Physical Exam: General: no acute distress; pleasant affect; non-toxic appearing; well- nourished; cooperative; SpO2 99% on RA HEENT: normocephalic, atraumatic; no scleral icterus; PERRLA w/ EOMs intact; vision and hearing grossly intact Neck: supple; no lymphadenopathy; trachea midline Skin: warm, dry without signs of tenting; no cyanosis; no rashes, bruising, lesions, or erythema noted CV: chest wall NTP; RRR; S1/S2 normal; no murmurs/rubs/gallops; pulses intact and symmetric at radial, DP, and PT Lungs: no acute respiratory distress; symmetrical chest wall expansion; clear breath sounds across all lung mcnair w/o adventitious sounds; no wheezing ABD: Soft, NTP; BS present; no rebound/guarding; no distention; no rashes or bruising on the abdomen or flanks RLE: Warm to touch; erythematous and swollen from the dorsal aspect of the right foot extending up to the knee (see photo below); blister noted on the popliteal fossa MSK: no tics or fasciculations; +2 pitting edema noted in the LEs b/l; patient demonstrates ability to wiggle toes bilaterally Neuro: A&Ox3; normal mood and affect; fluent speech; no focal deficits; sensation intact and symmetric in the LEs b/l Results & Data Results & Data Vital Signs (Past 12 Hours) Vital Signs Temp Pulse Pulse Resp BP BP Pulse Ox 12/03/23 12:01 96 H 20 99 12/03/23 11:58 99 H 20 158/99 H 99 12/03/23 11:18 37.8 C H 101 H 20 146/94 H 94 O2 Del Method 12/03/23 12:01 Room Air 12/03/23 11:58 Room Air 12/03/23 11:18 Room Air Diagnostic Findings Chest X-Ray 12/03/23 11:22 XR chest 1V portable CLINICAL HISTORY: Sepsis COMPARISON STUDY: Chest radiograph December 01, 2023. FINDINGS: Lung volumes are normal. There is no consolidation. Linear left basilar density represents atelectasis. There is no pneumothorax or pleural effusion. Cardiac size is normal. Mediastinal contours are normal. There is no evidence for pulmonary edema. IMPRESSION: No acute cardiopulmonary findings. ACT 112: Negative or not required by law. Electronically signed by: Jone Soto M.D. 12/03/2023 12:13 PM ECG Additional Comments: ECG revealed NSR at 92 bpm; QTc 477 Code Status & VTE Plan VTE Prophylaxis Plan VTE Prophylaxis will be ordered: Yes Supervising Physician Co-Signing Physician Notes Patient seen and examined, chart reviewed, case discussed with Virgil Fischer PA-C and I agree with the assessment and plan as above except as otherwise noted Labs and images reviewed 48-year-old male who presents with right lower extremity cellulitis after a suspected arachnid bite. Patient left the hospital AMA 1 day ago, has yet to warp picker his outpatient antibiotics. Cellulitis is receding from previously marked borders, white count remains elevated but down trended from prior. CRP is pending. Leg is warm and tender to the touch. Patient denies calf pain, cool extremities, paresthesias. Ankle dorsiflexion/plantarflexion is intact without pain. Sensation of soft touch is intact in the feet without deficit or asymmetry. Agree with admission and continued treatment for severe cellulitis. Patient has significant swelling and lower extremity edema; there is no evidence of DVT on prior Doppler. No evidence of acute compartment syndrome admission. Agree with treatment of antibiotics. Given tachycardia, fever, leukocytosis will give additional fluids to meet sepsis recommendations as noted. Neurovascular checks every 4 hours. Agree with assessment and management above PG Care Time/CCT Total # of Minutes Spent Total Time Spent with Patient: Total time spent is greater than 50% in coordination of care (as documented) at patient's floor/unit and/or counseling patient: Coding [place] [address] INT INP/OBS CARE MIN Patient Type Established History Comprehensive Exam Comprehensive Medical Decision Making High Complexity Diagnoses Cellulitis of right anterior lower leg L03.115 Sepsis A41.9 Spider bite T63.301A Hypertension I10 Fever R50.9 Anxiety F41.9
[2023-12-03] MEDS: MoRPHine SULFATE 2 MG/ML CARP IV STA (12:25)
[2023-12-03 12:28] LABS: Albumin Globulin Ratio 1.1 (0.9-2); Albumin Level 3.2 gm/dl (3.4-5.0); BUN Creatinine Ratio 12.5 (10-20); Bilirubin,Total 0.7 mg/dl (0.2-1.0); Calcium 8.3 mg/dl (8.6-10.3); Creatinine Clr Calc Pharmacy 114.1 ml/min; Est GFR (African American) 120.7 ml/min; Est GFR (Non-African American) 104.2 ml/min; Magnesium 1.9 mg/dl (1.7-2.4); Potassium 3.3 mmol/L (3.5-5.1); Total Protein 6.2 gm/dl (6.0-8.3)
[2023-12-03 12:34] LABS: Troponin I High Sensitivity 9.9 pg/ml (0-20)
[2023-12-03] MEDS: ACETAMINOPHEN 1,000 MG/100 ML VIAL IV STA (12:54)
[2023-12-03 12:57] LABS: Basophils # (auto) 0.03 K/uL (0.00-0.20); Basophils % (auto) 0.2 %; Eosinophils # (auto) 0.06 K/uL (0.00-0.50); Eosinophils % (auto) 0.5 %; Hematocrit (blood only) 34.1 % (42.0-52.0); Hemoglobin 11.6 g/dl (14.0-18.0); Immature Granulocytes # (auto) 0.36 K/uL (0.01-0.20); Immature Granulocytes % (auto) 2.9 %; Lymphocytes # (auto) 0.47 K/uL (1.20-3.40); Lymphocytes % (auto) 3.7 %; Mean Corpuscular Hemoglobin 35.3 pg (25.0-34.0); Mean Corpuscular Volume 103.6 fL (80.0-100.0); Mean Platelet Volume 10.4 fL (9.4-12.4); Monocytes # (auto) 0.48 K/uL (0.11-0.59); Monocytes % (auto) 3.8 %; Neutrophils # (auto) 11.16 K/uL (1.40-6.50); Neutrophils % (auto) 88.9 %; Platelet Count 191 K/uL (130-400); Platelet Estimate Normal (Normal); RDW Coefficient of Variation 12.7 % (11.5-14.5); RDW Standard Deviation 48.2 fL (36.4-46.3); Red Blood Count 3.29 M/uL (4.70-6.10); White Blood Count 12.56 K/ul (4.8-10.8)
[2023-12-03 13:03] LABS: C Reactive Protein 26.49 mg/dl (0-0.5)
[2023-12-03] MEDS: PLASMA LYTE A IV ONE (13:43)
[2023-12-03 15:47] LABS: Appearance Urine Clear (Clear); Bilirubin Urine Negative (Negative); Blood Urine Negative (Negative); Color Urine Yellow; Glucose Urine UA Negative (Negative); Ketones Urine Negative (Negative); Leukocyte Esterase Urine Negative (Negative); Nitrite Urine Negative (Negative); Protein Urine Negative (Negative); Specific Gravity Urine 1.009 (1.000-1.030); Urobilinogen Urine Negative (Negative); pH Urine 6.5 (4.5-7.5)
[2023-12-03] MEDS: oxyCODONE HCL IR 5 MG TAB (IMMEDIATE RELEASE) PO PRN (16:44)
[2023-12-03] MEDS: FERROUS SULFATE 325 MG TAB PO SCH (17:03)
[2023-12-03] MEDS ORDERED: MELATONIN 3 MG TAB PO PRN (20:12)
[2023-12-03 20:23] LABS: Influenza A virus by PCR Negative (Neg); Influenza B virus by PCR Negative (Neg); RSV by PCR Negative (Neg); SARS CoV2 RNA(COVID-19) Ceph POSITIVE (Negative)
[2023-12-03] MEDS ORDERED: cefTRIAXone SODIUM 2,000 MG/50 ML BAG IV SCH (20:30)
[2023-12-03] MEDS: ENOXAPARIN INJ 40 MG/0.4 ML SYR SQ SCH (21:14)
[2023-12-03] MEDS: MELATONIN 3 MG TAB PO PRN (21:14)
[2023-12-03] MEDS: DAPTOmycin 300 MG in SYRINGE 0 ML IV SCH (21:14)
[2023-12-03] MEDS: buPROPion SR 100 MG TABCR PO SCH (21:14)
[2023-12-04] MEDS: diphenhydrAMINE Capsule 25 MG CAP PO ONE (01:19)
[2023-12-04 07:07] LABS: Basophils # (auto) 0.03 K/uL (0.00-0.20); Basophils % (auto) 0.3 %; Eosinophils # (auto) 0.01 K/uL (0.00-0.50); Eosinophils % (auto) 0.1 %; Hemoglobin 10.8 g/dl (14.0-18.0); Immature Granulocytes # (auto) 0.05 K/uL (0.01-0.20); Immature Granulocytes % (auto) 0.6 %; Lymphocytes # (auto) 1.13 K/uL (1.20-3.40); Lymphocytes % (auto) 12.5 %; Mean Corpuscular Hemoglobin 35.6 pg (25.0-34.0); Mean Corpuscular Hgb Conc 33.8 g/dL (32.0-36.0); Mean Corpuscular Volume 105.6 fL (80.0-100.0); Mean Platelet Volume 10.3 fL (9.4-12.4); Monocytes # (auto) 0.93 K/uL (0.11-0.59); Monocytes % (auto) 10.3 %; Neutrophils # (auto) 6.92 K/uL (1.40-6.50); Neutrophils % (auto) 76.2 %; Platelet Count 246 K/uL (130-400); RDW Coefficient of Variation 12.9 % (11.5-14.5); RDW Standard Deviation 49.9 fL (36.4-46.3); Red Blood Count 3.03 M/uL (4.70-6.10); White Blood Count 9.07 K/ul (4.8-10.8)
[2023-12-04 07:34] LABS: BUN Creatinine Ratio 11.9 (10-20); C Reactive Protein 24.64 mg/dl (0-0.5); Calcium 7.6 mg/dl (8.6-10.3); Creatinine Clr Calc Pharmacy 136.2 ml/min; Est GFR (African American) 129.9 ml/min; Potassium 3.5 mmol/L (3.5-5.1)
[2023-12-04] MEDS: lisinopril 20 MG TAB PO SCH (08:25)
[2023-12-04] MEDS: PROPRANOLOL HCL 20 MG TAB PO SCH (08:25)
[2023-12-04] MEDS: MAGNESIUM OXIDE 400 MG TAB PO SCH (08:25)
[2023-12-04] MEDS: ACETAMINOPHEN 325 MG TAB PO PRN (08:25)
--- NOTE | 2023-12-04 08:32 | Hospitalist Progress Note ---
Date of Service December 04, 2023 Assessment & Plan (1) Cellulitis of right anterior lower leg: Plan: Patient initially presented on 11/30 for lower extremity cellulitis secondary to spider bite - He left AMA on 12/01, but then returned on 12/02 due to fever of 103F - No purulent drainage or h/o MRSA infections - Leukocytosis at 12.56 with a neutrophil predominance; febrile at 37.8 C on arrival - CRP and ESR elevated at 24.64 and 41 respectively - Procalcitonin and lactate were WNL on arrival - Venous Doppler on 11/30 showed no evidence of DVT - Blood cultures from 11/30 revealed no growth x48 hours - Blood cultures from this admission are negative x24 hours - Neurochecks Q4H were discontinued AM of 12/03. Although his RLE remains significantly swollen, I do not believe it is swollen enough to be a risk of acute compartment syndrome at this time Continue with Unasyn and daptomycin Acetaminophen as needed for mild pain/fever Oxycodone as needed for breakthrough pain Started low-dose Xarelto 10 mg daily x31-39 days for VTE prophylaxis given his swelling and risk for developing DVT (2) Sepsis: Plan: Skin/soft tissue source - Tachycardic and febrile on arrival - Lactate and procalcitonin WNL - Blood cultures redrawn, pending. Prior blood cultures on 11/30 without growth to date - Resuscitated with IVF on admission - Antibiotics as above (3) Spider bite: Plan: Tib/fib x-ray on 11/30 did not note any osseous abnormalities No necrosis noted on clinical exam (4) COVID: Plan: Patient tested positive for COVID on arrival - CXR negative for acute cardiopulmonary findings - Patient reported symptoms of cough and sore throat prior to admission. Asy mptomatic at this time. Plan Started Xarelto 10 mg daily for VTE PPx Updated at bedside Chronic stable problems Hypertension: Continue amlodipine, lisinopril, propranolol Anxiety: Continue Wellbutrin Chronic anemia: Continue ferrous sulfate PUD: Continue Protonix CODE STATUS: Full code VTE PPx: Started Xarelto 10 mg daily on 12/04/23 Admission and Anticipated Discharge Date Admission Date: December 03, 2023 Subjective Patient seen and evaluated at bedside with . He reports that the tenderness in his right lower leg is slightly improved. He reports it is a 3/10 when resting and a 78/10 when standing/ambulating. Erythema continues to reduce from previously marked border. He does continue to have significant swelling in his right lower extremity. We discussed Xarelto for VTE prophylaxis, which she was agreeable to. Additionally, patient tested positive for COVID on this admission. His reports that she recently had COVID. Patient notes that he had a cough and sore throat a couple days ago, his symptoms are resolved at this time. No additional complaints or concerns at this time. Physical Exam Physical Exam: General: No acute distress, nondiaphoretic, well-developed, well-nourished. Skin: Right lower extremity warm to touch with circumferential erythema. Erythema reducing from previously marked border. Significant swelling with 3+ pitting edema to his knee. Small blisters noted on anterior RLE as well as popliteal fossa, weeping clear/yellow fluid. No crepitus, no purulent drainage. Cardiac: Regular rate and rhythm without murmurs gallops or rubs. Pulm: Clear to auscultation bilaterally without wheezes, rales or rhonchi. No respiratory distress. 96% on room air. Abdominal: Soft, nontender, nondistended. Bowel sounds present. Neuro: A&O x3. No focal neurological deficits. Results & Data Results & Data Vital Signs (Past 12 Hours) Vital Signs Temp Pulse Pulse Resp BP Pulse Ox O2 Del Method 12/04/23 03:19 94 Room Air 12/04/23 02:53 37.3 C 84 18 138/80 88 L Room Air 12/04/23 00:37 36.8 C 12/03/23 22:31 38 C H 99 H 18 163/94 H 92 Room Air 12/03/23 22:01 91 H Laboratory Results Reviewed CBC Reviewed CMP/chemistries Reviewed UA Reviewed COVID swab Reviewed blood cultures PG Care Time/CCT Total # of Minutes Spent Total Time Spent with Patient: Total time spent is greater than 50% in coordination of care (as documented) at patient's floor/unit and/or counseling patient: Coding Level of Care Code 03304 SUB INP/OBS CARE 3/50MIN Diagnoses Cellulitis of right anterior lower leg L03.115 Sepsis A41.9 Spider bite T63.301A COVID U07.1
[2023-12-04] MEDS ORDERED: Nursing to Pharmacy Communication SCH (08:45)
[2023-12-04] MEDS ORDERED: PANTOprazole 40 MG TAB PO SCH (09:00)
[2023-12-04] MEDS ORDERED: amLODIPine BESYLATE 5 MG TAB PO SCH (09:00)
[2023-12-04] MEDS: amLODIPine BESYLATE 5 MG TAB PO SCH (13:06)
[2023-12-04] MEDS: AMPICILLIN/SULBACTAM SOD 3,000 MG/100 ML BAG IV SCH (20:08)
[2023-12-04] MEDS: PANTOprazole 40 MG TAB PO SCH (20:10)
[2023-12-04] MEDS: RIVAROXABAN 10 MG TABLET PO SCH (20:38)
[2023-12-04] MEDS ORDERED: RIVAROXABAN 10 MG TABLET PO SCH (21:00)
--- NOTE | 2023-12-04 22:05 | Electrocardiogram Report ---
Test Reason : Blood Pressure : */* mmHG Vent. Rate : 92 BPM Atrial Rate : 92 BPM P-R Int : 130 ms QRS Dur : 98 ms QT Int : 386 ms P-R-T Axes : 50 30 58 degrees QTcB Int : 477 ms Normal sinus rhythm Nonspecific ST abnormality When compared with ECG of 28-Sep-2023 14:21, No significant change was found Confirmed by Charles Jones ([id number]) on 12/04/2023 10:04:35 PM Referred By: REFERRED SELF Confirmed By: Charles Jones
[2023-12-05 07:42] LABS: Basophils # (auto) 0.03 K/uL (0.00-0.20); Basophils % (auto) 0.5 %; Eosinophils # (auto) 0.01 K/uL (0.00-0.50); Eosinophils % (auto) 0.2 %; Hematocrit (blood only) 31.1 % (42.0-52.0); Hemoglobin 10.6 g/dl (14.0-18.0); Immature Granulocytes # (auto) 0.05 K/uL (0.01-0.20); Immature Granulocytes % (auto) 0.9 %; Lymphocytes # (auto) 1.06 K/uL (1.20-3.40); Lymphocytes % (auto) 19.4 %; Mean Corpuscular Hemoglobin 35.2 pg (25.0-34.0); Mean Corpuscular Hgb Conc 34.1 g/dL (32.0-36.0); Mean Corpuscular Volume 103.3 fL (80.0-100.0); Mean Platelet Volume 9.5 fL (9.4-12.4); Monocytes # (auto) 0.85 K/uL (0.11-0.59); Monocytes % (auto) 15.6 %; Neutrophils # (auto) 3.46 K/uL (1.40-6.50); Neutrophils % (auto) 63.4 %; Platelet Count 240 K/uL (130-400); RDW Standard Deviation 48.6 fL (36.4-46.3); Red Blood Count 3.01 M/uL (4.70-6.10); White Blood Count 5.46 K/ul (4.8-10.8)
[2023-12-05 07:57] LABS: BUN Creatinine Ratio 11.7 (10-20); C Reactive Protein 15.46 mg/dl (0-0.5); Calcium 7.4 mg/dl (8.6-10.3); Creatinine Clr Calc Pharmacy 152.1 ml/min; Est GFR (African American) 135.9 ml/min; Est GFR (Non-African American) 117.2 ml/min; Potassium 3.1 mmol/L (3.5-5.1)
[2023-12-05] MEDS: POTASSIUM CHLORIDE CRTAB 20 MEQ TABCR PO STA (08:39)
[2023-12-05 12:19] VITALS: PULSE 75; RESP 18; TEMP 98.2; O2SAT 97
[2023-12-05 15:09] VITALS: BP 158/84
--- NOTE | 2023-12-05 17:11 | Discharge Summary ---
Discharge Summary Date of Service December 05, 2023 Principal Dx & Hospital Course #1 = Principal Diagnosis (1) Cellulitis of right anterior lower leg: Patient initially presented on 11/30 for lower extremity cellulitis secondary to spider bite - He left AMA on 12/01, but then returned on 12/02 due to fever of 103F - No purulent drainage or h/o MRSA infections - Leukocytosis at 12.56 with a neutrophil predominance; febrile at 37.8 C on arrival - CRP and ESR elevated at 24.64 and 41 respectively on admission - Procalcitonin and lactate were WNL on arrival - Venous Doppler on 11/30 showed no evidence of DVT - Blood cultures from 11/30 revealed no growth x48 hours - Blood cultures from this admission are negative x24 hours - Neurochecks Q4H were discontinued AM of 12/03. Although his RLE remains significantly swollen, I do not believe it is swollen enough to be a risk of acute compartment syndrome at this time Treated with Unasyn and daptomycin while hospitalized Discharged with Augmentin BID x 7 days. No need for MRSA coverage as MRSA nasal swab negative Continue to use Acetaminophen as needed for pain/fever Continue low-dose Xarelto 10 mg daily x31 days for VTE prophylaxis given his swelling and risk for developing DVT > Started on 12/03 > Of note, patient does not have medical insurance. The Xarelto coupon card does not cover the 10 mg dosage. Therefore, Xarelto 20 mg was ordered and the patient was instructed to cut his tablets in half. > Thorough education was provided to the patient in regards to bleeding risks associated with Xarelto (2) Sepsis: Skin/soft tissue source - Tachycardic and febrile on arrival - Lactate and procalcitonin WNL - Blood cultures redrawn on this admission negative x48 hours. Prior blood cultures on 11/30 negative. - Resuscitated with IVF on admission - Antibiotics as above (3) Spider bite: Tib/fib x-ray on 11/30 did not note any osseous abnormalities No necrosis noted on clinical exam (4) COVID: Patient tested positive for COVID on arrival - CXR negative for acute cardiopulmonary findings - Patient reported symptoms of cough and sore throat prior to admission. Asymptomatic and no hypoxemia at this time and no need for treatment Plan Chronic stable problems Hypertension: Continue amlodipine, lisinopril, propranolol Anxiety: Continue Wellbutrin Chronic anemia: Continue ferrous sulfate PUD: Continue Protonix CODE STATUS: Full code VTE PPx: Started Xarelto 10 mg daily on 12/04/23 Notes For Next Care Provider Patient presenting with significant cellulitis secondary to suspected spider bite on his right lower extremity. Circumferential erythema reducing from marked borders. Continues to have significant swelling, 3+ pitting edema up to his thigh. He was started on Xarelto for VTE prophylaxis given his significant swelling. Of note, patient does not have medical insurance so he was given a Xarelto coupon card. However, this coupon card does not cover the 10 mg Xarelto dosage, so 20 mg dosage was prescribed and patient is instructed to cut his tablets in half. Additionally, patient tested positive for COVID on admission. His recently had tested positive for COVID. He has been asymptomatic. Medication Changes From Visit Augmentin twice daily x 7 days Xarelto 10 mg daily x 31 days Admission HPI Per Admitting Provider Mario is a 48-year-old male with PMH of Chen's esophagus, anxiety, and iron deficiency anemia. He returned to the hospital on 12/02 for fever/RLE cellulitis secondary to spider bite. Patient was originally bitten on Friday night around 5 PM, then developed redness and swelling in his right lower extremity around 8 PM. He is unsure if it was a brown recluse or a hernandez spider. He came to the hospital on Thursday 11/30 and received IV antibiotics for 2 days before leaving AMA after receiving IV antibiotics on the evening of 12/01. He then reports he developed a fever of 103 F at home despite taking Tylenol x 2. He returned this morning, and does endorse worsening redness and swelling since he left. He rates the pain in his right lower extremity a 5/10 while sitting, and a 10/10 when standing and bearing weight on it. Pain is exacerbated by standing. He describes as a sharp, stabbing pain located between his foot and his knee. He did take 1 Advil prior to coming to the hospital. Took regular morning medications today; no recent change in medications. No prior history of cellulitis. No history of hardware in his leg or knee replacements. 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 No history of DVTs or PEs. No recent injuries to the right lower extremity. No history of MRSA infections. He does note that he now has a blister on his right popliteal fossa (new for him since discharge). No weeping or purulent drainage. He is a current everyday cigarette smoker; 1 cigarette/day. He also endorses alcohol use; 23 beers per day with the last drink being last night after leaving the hospital. His daily alcohol use has been ongoing for the past 2-3 years. He denies history of alcohol withdrawal or seizures. Patient is hypertensive 158/99 and febrile at 37.8 C at time admission. ED course: Zosyn 4.5 g IV Acetaminophen 1000 mg IV Morphine sulfate 2 mg IV NSS 1000 mL IV ROS: Patient endorses fever of 103, chills, night-sweats, pain/swelling/erythema in the RLE, and intermittent numbness/tingling in the right ankle. Patient denies dizziness, lightheadedness, PONCE, changes in vision, chest pain, pleuritic CP, SOB, cough, abdominal pain, N/V/D, or change in urinary/bowel habits. Admission Exam Per Admitting Provider General: no acute distress; pleasant affect; non-toxic appearing; well- nourished; cooperative; SpO2 99% on RA HEENT: normocephalic, atraumatic; no scleral icterus; PERRLA w/ EOMs intact; vision and hearing grossly intact Neck: supple; no lymphadenopathy; trachea midline Skin: warm, dry without signs of tenting; no cyanosis; no rashes, bruising, lesions, or erythema noted CV: chest wall NTP; RRR; S1/S2 normal; no murmurs/rubs/gallops; pulses intact and symmetric at radial, DP, and PT Lungs: no acute respiratory distress; symmetrical chest wall expansion; clear breath sounds across all lung mcnair w/o adventitious sounds; no wheezing ABD: Soft, NTP; BS present; no rebound/guarding; no distention; no rashes or bruising on the abdomen or flanks RLE: Warm to touch; erythematous and swollen from the dorsal aspect of the right foot extending up to the knee (see photo below); blister noted on the popliteal fossa MSK: no tics or fasciculations; +2 pitting edema noted in the LEs b/l; patient demonstrates ability to wiggle toes bilaterally Neuro: A&Ox3; normal mood and affect; fluent speech; no focal deficits; sensation intact and symmetric in the LEs b/l Discharge Exam General: No acute distress, nondiaphoretic, well-developed, well-nourished. Skin: Right lower extremity warm to touch with circumferential erythema. Erythema reducing from previously marked border. Significant swelling with 3+ pitting edema to his knee. Small blisters noted on anterior RLE as well as popliteal fossa, weeping clear/yellow fluid. No crepitus, no purulent drainage. Cardiac: Regular rate and rhythm without murmurs gallops or rubs. Pulm: Clear to auscultation bilaterally without wheezes, rales or rhonchi. No respiratory distress. 97% on room air. Abdominal: Soft, nontender, nondistended. Bowel sounds present. Neuro: A&O x3. No focal neurological deficits. Discharge Plan Discharge Items Patient Disposition: Home - Self-Care Reason For Visit: RLE CELLULITIS Discharge Diagnosis: Right lower extremity cellulitis Activity: Per Instructions section Non-emergency contact: Primary Care Provider Call non-emergency contact if: you have any medication questions, your symptoms worsen and you have a fever Follow-up/Referrals: Rafita Lynn MD [Primary Care Provider] - 12/12/23 10:05 am (Follow-up in 1-2 weeks) Diet: Heart Healthy Addtl Attending Provider Instructions: Mr. Guzmán, Matteo were admitted to the hospital due to a cellulitis infection. Cellulitis is an infection of the skin/soft tissues caused by bacteria. Bacteria can enter the body through broken skin; this can happen with a cut, scratch, or insect bite. You have been treated in the hospital with IV antibiotics, and will be discharged with oral antibiotics to continue taking at home. The redness in your leg has reduced, but it still remains red - this will take some time to completely resolve. You still have significant swelling in your right leg. As we discussed, you will take Xarelto (a blood thinner) for a total of 31 days to prevent a blood clot from forming in your leg secondary to the significant swelling. Xarelto increases your risk for bleeding, which can be serious. While taking Xarelto, you are likely to bruise more easily and it may take longer for the bleeding to stop. Upon discharge from the hospital: * Take Augmentin (oral antibiotic) twice daily x 7 days. Take this antibiotic as directed until it is gone. Take it even if you feel better. It treats the infection and prevents it from returning. Not taking all of the medicine can make future infections harder to treat. * Takes Xarelto once daily x 30 days. This is a blood thinner medicine that we will prevent a blood clot from forming secondary to the significant swelling in your right leg. * Continue to take Tylenol as needed for pain/fever. * Follow-up with your PCP. Their office will call you with your follow-up appointment details. Please return to the hospital if you experience any of the following: Fever of 100.5 F or higher, trouble or pain with moving the joints above or below the infected area, discharge or pus draining from the infected area, pain that gets worse in or around the infected area, redness that gets worse and around the infected area, shaking chills, worsened swelling of the infected area, lightheadedness, dizziness, passing out, shortness of breath, difficulty breathing, chest pain, bleeding that is severe or you cannot control, red/pink/brown urine, bright red or black stools, coughing up blood, or vomiting blood or what looks like coffee grounds. It was a pleasure taking care of you while you were in the hospital, Gayle Victoria PA-C Pending Studies at Discharge: No Stand-Alone Forms: My [facility], Smoking Cessation Medications and DC Order Prescriptions: New Xarelto 10 mg Tablet 20 mg PO HS Qty: 30 0RF Continued ferrous sulfate 325 mg (65 mg iron) tablet 325 mg PO TID Qty: 90 3RF bupropion HCl [Wellbutrin XL] 100 mg PO BID lisinopril 20 mg tablet 20 mg PO DAILY Qty: 90 3RF Kratom 1 tsp PO QID PRN (Reason: Pain Symptoms) Patient Comments: herbal medicine for pain Rx Instructions: Mixed with water multivitamin Capsule 1 cap PO QAM pantoprazole [Protonix] 40 mg tablet,delayed release (DR/EC) 40 mg PO QAM magnesium oxide [MagOx] 400 mg (241.3 mg magnesium) tablet 400 mg PO DAILY Qty: 7 0RF amlodipine 5 mg tablet 5 mg PO DAILY propranolol 20 mg tablet 20 mg PO DAILY amoxicillin-pot clavulanate 875-125 mg tablet 1 tab PO BID Qty: 14 0RF Held ibuprofen 200 mg tablet 200 mg PO Q6H PRN (Reason: Pain) Hold Instructions: Resume on 01/06/24. Discharge Orders: Discharge Order (Routine); Ordered 12/05/23 Ordered By: Sunni Kwan/Other Patient Handouts: Cellulitis Dc, Hyponatremia Dc, ED Cellulitis Admission Data Admit Date/Time: 12/03/23 12:47 Attending Provider: Sunni John Admit Provider: Reyes Villa Primary Care Provider: Rafita Lynn Other Providers: Reyes Villa Other Interventions: Discharge Summary Assessment (RN) Last Done: 12/05/23 15:07 Hospital Stay Data Consultations 12/03/23 13:19 ED Decision to Admit Stat Diagnostic Imagining Performed Chest X-Ray 12/03/23 11:22 XR chest 1V portable CLINICAL HISTORY: Sepsis COMPARISON STUDY: Chest radiograph December 01, 2023. FINDINGS: Lung volumes are normal. There is no consolidation. Linear left basilar density represents atelectasis. There is no pneumothorax or pleural effusion. Cardiac size is normal. Mediastinal contours are normal. There is no evidence for pulmonary edema. IMPRESSION: No acute cardiopulmonary findings. ACT 112: Negative or not required by law. Electronically signed by: Jone Soto M.D. 12/03/2023 12:13 PM Pending Results Patient Have Any Pending Studies at Discharge: No Discharge Instructions Given to Patient (Per Discharging Provider) Matteo Morgan were admitted to the hospital due to a cellulitis infection. Cellulitis is an infection of the skin/soft tissues caused by bacteria. Bacteria can enter the body through broken skin; this can happen with a cut, scratch, or insect bite. You have been treated in the hospital with IV antibiotics, and will be discharged with oral antibiotics to continue taking at home. The redness in your leg has reduced, but it still remains red - this will take some time to completely resolve. You still have significant swelling in your right leg. As we discussed, you will take Xarelto (a blood thinner) for a total of 31 days to prevent a blood clot from forming in your leg secondary to the significant swelling. Xarelto increases your risk for bleeding, which can be serious. While taking Xarelto, you are likely to bruise more easily and it may take longer for the bleeding to stop. Upon discharge from the hospital: * Take Augmentin (oral antibiotic) twice daily x 7 days. Take this antibiotic as directed until it is gone. Take it even if you feel better. It treats the infection and prevents it from returning. Not taking all of the medicine can make future infections harder to treat. * Takes Xarelto once daily x 30 days. This is a blood thinner medicine that we will prevent a blood clot from forming secondary to the significant swelling in your right leg. * Continue to take Tylenol as needed for pain/fever. * Follow-up with your PCP. Their office will call you with your follow-up appointment details. Please return to the hospital if you experience any of the following: Fever of 100.5 F or higher, trouble or pain with moving the joints above or below the infected area, discharge or pus draining from the infected area, pain that gets worse in or around the infected area, redness that gets worse and around the infected area, shaking chills, worsened swelling of the infected area, lightheadedness, dizziness, passing out, shortness of breath, difficulty breathing, chest pain, bleeding that is severe or you cannot control, red/pink /brown urine, bright red or black stools, coughing up blood, or vomiting blood or what looks like coffee grounds. It was a pleasure taking care of you while you were in the hospital, Gayle Victoria PA-C Supervising Physician Co-Signing Physician Notes PA Supervision Note: I personally saw and examined the patient. I verified all nair points and agree with INEZ Victoria with the following exceptions and/or additions: S-patient reports significant improvement in the redness and swelling in his right lower extremity although it continues to be quite significant. No further fevers and he is feeling much better. O- Vitals reviewed Gen: AAOx3, NAD HEENT: Anicteric sclerae, EOMI CV: RRR no mgr nl S1S2 Pulm: CTAB no wcr Ext: RLE with 3+ pitting edema to the mid thigh, significant erythema circumferentially of right calf and leg but receding from proximal and distal drawn demarcated lines A/V-13-ferd-old male here with significant right lower extremity cellulitis and sepsis. Fevers resolved, blood cultures remain no growth, leukocytosis resolved, CRP trending downward, erythema and edema improving While it is improving, he still needs to focus on significant elevation, compression, continuing antibiotics, and close monitoring for worsening Stable for discharge home Total Time Total Time Spent Total Time Spent (In Minutes): Greater than 30 minutes spent completing this discharge process including direct patient care, medication reconciliation, documentation, review of labs and images, and coordination of care. Coding Level of Care Code 16826 INP/OBS DISCH >30 MIN Diagnoses Cellulitis of right anterior lower leg L03.115 Sepsis A41.9 Spider bite T63.301A COVID U07.1
== END 2023-12-05 15:51 | disposition home or self-care (01) | DRG 871 ==
LOC: ED 11:04 → SUATTDRO 12:47 → EDINP 12:47 → 2N 15:41